=== PATIENT | female | born 1980 | race Caucasian/White ===

== ENCOUNTER 2017-03-19 17:29 | Emergency (ER) | payer OTHER ==
[~2017-03-19] VITALS: Ht 160 cm; Wt 74.4 kg
[2017-03-19 19:12] VITALS: BP 133/88
== END 2017-03-19 19:12 | disposition home or self-care (01) ==
LOC: ED 17:29
DX: M79.672 Pain in left foot (principal); R03.0 Elevated blood-pressure reading, without diagnosis of hypertension

== ENCOUNTER 2017-10-10 10:51 | Emergency (ER) | payer OTHER ==
[~2017-10-10] VITALS: Ht 162.6 cm; Wt 77.1 kg
[2017-10-10 15:22] VITALS: BP 126/84
== END 2017-10-10 15:22 | disposition home or self-care (01) ==
LOC: ED 10:51
DX: N64.4 Mastodynia (principal); R59.0 Localized enlarged lymph nodes; I10 Essential (primary) hypertension
CPT/HCPCS: 76641; Q0162

== ENCOUNTER 2018-01-28 11:40 | Emergency (ER) | payer MEDICAID ==
[~2018-01-28] VITALS: Ht 167.6 cm; Wt 78.9 kg
[2018-01-28 12:28] VITALS: BP 154/92
== END 2018-01-28 14:24 | disposition home or self-care (01) ==
LOC: ED 11:40
DX: H66.92 Otitis media, unspecified, left ear (principal)

== ENCOUNTER 2018-10-17 10:56 | Emergency (ER) | payer OTHER ==
[~2018-10-17] VITALS: Ht 160 cm; Wt 78.5 kg
[2018-10-17 11:12] VITALS: Ht 160 cm; Wt 78.5 kg
[2018-10-17 13:41] VITALS: BP 130/74
== END 2018-10-17 13:41 | disposition home or self-care (01) ==
LOC: ED 10:56
DX: S29.012A Strain of muscle and tendon of back wall of thorax, initial encounter (principal); S09.8XXA Other specified injuries of head, initial encounter; I10 Essential (primary) hypertension; W18.30XA Fall on same level, unspecified, initial encounter; Y93.89 Activity, other specified; Y92.89 Other specified places as the place of occurrence of the external cause; Y99.8 Other external cause status

== ENCOUNTER 2018-11-26 12:03 | Emergency (ER) | payer OTHER ==
[~2018-11-26] VITALS: Ht 165.1 cm; Wt 79.2 kg
[2018-11-26 12:07] VITALS: BP 143/73; Ht 165.1 cm; Wt 79.2 kg
== END 2018-11-26 14:29 | disposition left against medical advice (07) ==
LOC: ED 12:03
DX: Z53.21 Procedure and treatment not carried out due to patient leaving prior to being seen by health care provider (principal)

== ENCOUNTER 2020-05-15 09:14 | Emergency (ER) | payer OTHER ==
[~2020-05-15] VITALS: Ht 160 cm; Wt 78.5 kg
[2020-05-15 09:54] VITALS: Ht 160 cm; Wt 78.5 kg
[2020-05-15 10:49] LABS: BASOPHIL % 0.6 % (0-2); PLATELET COUNT 286 x10^3mcL (130-400); RED CELL DISTRIBUTION WIDTH 12.5 % (11.5-14.5)
[2020-05-15 10:55] LABS: CALCIUM 8.3 mg/dL (8.5-10.1); CARBON DIOXIDE 29.3 mmol/L (21-32); CHLORIDE SERUM 103 mmol/L (98-107); CREATININE SERUM 0.8 mg/dL (0.6-1.0); GFR1 > 60 mL/min; GLUCOSE SERUM 94 mg/dL (74-106); POTASSIUM SERUM 3.8 mmol/L (3.5-5.1); SODIUM SERUM 140 mmol/L (136-145)
[2020-05-15 11:00] LABS: ALBUMIN 3.7 g/dL (3.4-5.0); ALKALINE PHOSPHATASE 76 U/L (46-116); ALT/SGPT 23 U/L (14-59); AST/SGOT 14 U/L (15-37); BILIRUBIN TOTAL 0.5 mg/dL (0.20-1.00); TOTAL PROTEIN, SERUM 7.5 g/dL (6.4-8.2)
[2020-05-15 13:09] VITALS: BP 140/78
== END 2020-05-15 13:09 | disposition home or self-care (01) ==
LOC: ED 09:14
PROVIDERS: Emergency Medicine
DX: L03.115 Cellulitis of right lower limb (principal); I80.3 Phlebitis and thrombophlebitis of lower extremities, unspecified; I10 Essential (primary) hypertension
CPT/HCPCS: J7030; Q0092